=== PATIENT | male | born 1960 | race Caucasian/White ===

== ENCOUNTER → 2023-03-17 | Day surgery (SDC) | payer MEDICARE, BC ==
[2023-03-14 16:29] LABS: ALBUMIN 3.6 G/DL (3.4-5.0); ALBUMIN/GLOBULIN RATIO 0.7 (1.1-1.5); ALKALINE PHOSPHATASE 49 IU/L (46-116); BLOOD UREA NITROGEN 71 MG/DL (7-18); BUN/CREATININE RATIO 25.7 (10.0-20.0); CALCIUM 11.1 MG/DL (8.5-10.1); CHLORIDE 105 MMOL/L (99-107); CREATININE 2.76 MG/DL (0.60-1.10); PRE OP ALT 22 U/L (30-65); PRE OP ANION GAP 11 (8-16); PRE OP AST 22 U/L (10-37); PRE OP BILIRUB, TOTAL 0.5 MG/DL (0.0-1.0); PRE OP GLUCOSE 118 MG/DL (70-104); PRE OP SODIUM 135 MMOL/L (135-145); TOTAL CARBON DIOXIDE 19.1 MMOL/L (24-32); TOTAL PROTEIN 8.5 G/DL (6.4-8.2); eGFR 23 ML/MIN
[2023-03-14 16:39] LABS: BASOPHILS # (AUTO) 0.2 X10'3 (0-0.2); BASOPHILS % (AUTO) 1.4 % (0-1); EOSINOPHILS # (AUTO) 0.7 X10'3 (0-0.9); EOSINOPHILS % (AUTO) 5.9 % (0-6); LYMPHOCYTES # (AUTO) 3.4 X10'3 (1.1-4.8); LYMPHOCYTES % (AUTO) 29.6 % (21-51); MEAN CORPUSCULAR HEMOGLOBIN 27.4 PG (27.0-31.0); MEAN CORPUSCULAR HGB CONC 32.8 g/dL (33.0-36.5); MEAN CORPUSCULAR VOLUME 83.4 FL (78-98); MEAN PLATELET VOLUME 7.9 FL (7.4-10.4); MONOCYTES # (AUTO) 1.3 X10'3 (0-0.9); MONOCYTES % (AUTO) 11.5 % (2-12); NEUTROPHILS % (AUTO) 51.6 % (42-75); PRE OP HEMATOCRIT 38.4 % (42.0-52.0); PRE OP HEMOGLOBIN 12.6 g/dL (14.0-17.9); PRE OP PLATELET COUNT 514 X10'3 (140-440); RED BLOOD COUNT 4.61 X10'6 (4.70-6.10); RED CELL DISTRIBUTION WIDTH 15.8 % (11.5-14.5)
[2023-03-17] VITALS (14 sets, daily range): BP systolic 117–168; BP diastolic 56–90
[~2023-03-17] VITALS: Ht 182.9 cm; Wt 147.0 kg
[~2023-03-17] MED LIST: AMLO5TAB16 PO; BUPIVAcaine/PF 2.5 mg/ml (0.25%) 30ml vial ONE; CELE-85 PO; CIPR500T5 PO; CYAN100087 PO; DOCU-22 PO; DOCUMENT DATE & TIME OF BETA-BLOCKER PO ONE; DUPI300S SQ; FENO145T25 PO; FOLI1TAB27 PO; HYDR-4069 PO; HYDR25TA5 PO; INDOCYANINE GREEN 25 MG/10 ML VIAL IV ONE; LATA2.5D14 EACHEYE; LIDOcaine 1% 30ml preserv. free vial ONE; LIDOcaine 1%/PF 5ML 10 MG/ML VIAL ONE; LOSA50TA64 PO; METO50TA16 PO; OLME5TAB32 PO; OXYC1TAB17 PO; PANT40TA54 PO; ROSU20TA31 PO; TIMO5DRO15 EACHEYE; acetaminophen 1,000mg/100ml IV 100 ML IV ONE; albumin (Human) 5% 250ml 250 ML IV ONE; ceFAZolin inj. 3,000 MG in normal saline 100ml IV soln 100 ML IV ONE; desflurane 240ml liquid inh. IH ONE; ePHEDrine 50MG/ML INJ. ONE; famotidine 20mg tablet PO ONE; fentaNYL /PF 50mcg/ml 5ml ampule ONE; meperidine/PF 25mg/ml syringe IV PRN; midazolam 1 mg/ML 2ml injection ONE; morphine 2 MG/ML inj. syringe IV PRN; morphine 4 MG/ML inj SYRINge IV PRN; normal saline 1000ml 500 ML IV SCH; ondansetron/PF 4mg/2ml inj IV PRN; ondansetron/PF 4mg/2ml inj ONE; oxyCODONE/APAP 5-325mg tablet PO PRN; proCHLORperazine 10 MG/2 ml inj IV PRN; propofol inj 20 ML IV ONE; ringers solution, lacted 1,000 ML IV SCH; rocuronium 10mg/ml inj IV ONE
--- NOTE | 2023-03-17 13:10 | NUR ---
Received from OR via [facility] TO [facility], accompanied by Anesthesiologist DR SHANKS and report given by Anesthesiolgist. PT PRESENTS WITH 20G RIGHT AC, ROHAN HYDE, MARCO. Addendum: 03/17/23 at 1323 by Ronit Pena RN, RN Amended: Links added.
--- NOTE | 2023-03-17 15:10 | NUR ---
DC HOME: ALL DISCHARGE CRITERIA HAS BEEN MET. VSS, PAIN AT A TOLERABLE LEVEL, VOIDING AND ABLE TO SAFELY AMBULATE AND TRANSFER SELF. IV TAKEN OUT WITHOUT ANY COMPLICATIONS. ALL DISCHARGE INSTRUCTIONS COVERED WITH PATIENT AND ALL QUESTIONS ANSWERED. PATIENT TAKEN OUT VIA WHEELCHAIR TO PERSONAL VEHICLE WHERE FAMILY/FRIEND DROVE PATIENT HOME. Addendum: 03/17/23 at 1539 by Ronit Pena RN, RN Amended: Links added.
== END | disposition home or self-care (01) ==
LOC: PAS 08:28
PROVIDERS: ATTEND Surgery
DX: K80.10 Calculus of gallbladder with chronic cholecystitis without obstruction (principal); I10 Essential (primary) hypertension; E78.5 Hyperlipidemia, unspecified; K21.9 Gastro-esophageal reflux disease without esophagitis; G89.29 Other chronic pain; E66.01 Morbid (severe) obesity due to excess calories; Z68.42 Body mass index [BMI] 45.0-49.9, adult; G47.30 Sleep apnea, unspecified; H40.9 Unspecified glaucoma; Z98.1 Arthrodesis status; Z88.1 Allergy status to other antibiotic agents; Z98.890 Other specified postprocedural states; Z90.49 Acquired absence of other specified parts of digestive tract; F10.20 Alcohol dependence, uncomplicated; Z82.49 Family history of ischemic heart disease and other diseases of the circulatory system; Z82.3 Family history of stroke; Z84.1 Family history of disorders of kidney and ureter
CPT/HCPCS: 36415; 47563; 80053; 82948; 85025; 93005; J0131; J0690; J2175; J2250; J2405; J2704; J3010; J3490; J7030; J7120; P9045; Z7506; Z7508; Z7512; A4215; A4618; A7000